=== PATIENT | female | born 1980 | race Caucasian/White ===

== ENCOUNTER 2017-02-14 08:03 | Emergency (ER) | payer BC ==
[2017-02-14 08:15] VITALS: BP 123/76; BMI 36.6
--- NOTE | 2017-02-14 08:39 | DR.GENAD ---
HPI - PCP Primary Care Physician: NFD - Complaint/Symptoms Chief Complaint:: PATIENT STATED SHE IS HAVING RIGHT SIDE PAIN THAT STARTED ON HER WAY TO WORK THIS MORNING. PT STATED SHE HAS A HX OF KIDNEY STONES - Nurses notes reviewed Nurses Notes Review: Yes - Source History Provided: Patient - Mode of Arrival Mode of Arrival: Ambulatory - Timing Onset of Chief Complaint: 02/14/17 Came on: Suddenly - Duration How lon Duration: Hours - Location Location: right flank - Severity Severity: Mild - Associated Signs and Symptoms Associated Signs and Symptoms: none PMH - PMH Past Medical History: Yes Past Medical History: Hypertension, Hypothyroidism Past Surgical History: Yes Surgical History: Cholecystectomy, Hysterectomy, Lithotripsy - Family History History of Family Medical Conditions: No - Social History Does patient currently use any type of tobacco product: No Have you used tobacco products in the last 12 months: No Type of Tobacco Use: None Does any household member use tobacco: No Alcohol Use: Occasionally Do you use any recreational Drugs:: No Lives With: Family Lives Where: Home - infectious screening In the last 2 months have you had wt loss of >10#?: NO Have you had fever, night sweats or hemotysis?: No Have you traveled outside the country in the last 6 months?: No Isolation: Standard ROS - Review of Systems Constitutional: No Symptoms Reported Eyes: No Symptoms Reported ENTM: No Symptoms Reported Respiratoy: No Symptoms Reported Cardiovascular: No Symptoms Reported Gastrointestinal/Abdominal: Other (right flank) Genitourinary: No Symptoms Reported Neurological: No Symptoms Reported Musculoskeletal: No Symptoms Reported Integumentary: No Symptoms Reported Hematologic/Lymphatic: No Symptoms Reported Endocrine: No Symptoms Reported Psychiatric: No Symptoms Reported PE - Vital Signs Vitals: Temperature 97.9 F Pulse Rate 89 Respiratory Rate 16 Blood Pressure 123/76 O2 Sat by Pulse Oximetry 100 - General Limitations: No Limitations General Appearance: Alert - Head Head Exam: Normal Inspection, Atraumatic - Eyes Eye exam: EOMI. negative: Scleral Icterus, Conjunctival Injection - ENT ENT Exam: Normal Exam, Normal Oropharynx External Ear Exam: Normal External Inspection Nose Exam: Normal Nose Exam - Neck Neck Exam: Normal Inspection, Full ROM, Trachea Midline - Respiratory Respiratory Exam: Normal Lung Sounds Bilat. negative: Accessory Muscle Use, Respiratory Distress Respiratory Exam: Bilateral Clear to Auscultation - Cardiovascular Cardiovascular Exam: Regular Rate - Abdominal Exam Abdominal Exam: Normal Inspection, Normal Bowel Sounds, Soft. negative: Distention, Tenderness, Guarding, Rebound - Extremities Extremities Exam: Normal Inspection, Full ROM - Back Back Exam: (R) CVA Tenderness - Neurologic Neurological Exam: Alert, Oriented X3, CN II-XII Intact - Psychiatric Psychiatric Exam: Depressed - Skin Skin Exam: Intact, Normal Color ROR - Labs Reviewed Laboratory: Specimen Type Clean catch urine 02/14/17 08:40 Urine Color Yellow (YELLOW) 02/14/17 08:40 Urine Appearance Cloudy (CLEAR) 02/14/17 08:40 Urine pH 6.0 (5.0 - 8.0) 02/14/17 08:40 Ur Specific [place] 1.020 (1.000-1.030) 02/14/17 08:40 Urine Protein 2+ (NEGATIVE) 02/14/17 08:40 Urine Glucose (UA) Negative (NEGATIVE) 02/14/17 08:40 Urine Ketones Negative (NEGATIVE) 02/14/17 08:40 Urine Occult Blood 5+ (NEGATIVE) 02/14/17 08:40 Urine Nitrite Negative (NEGATIVE) 02/14/17 08:40 Urine Bilirubin Negative (NEGATIVE) 02/14/17 08:40 Urine Urobilinogen Normal (NORMAL) 02/14/17 08:40 Ur Leukocyte Esterase 1+ (NEGATIVE) 02/14/17 08:40 Urine RBC 20-25 /HPF (NEGATIVE) 02/14/17 08:40 Urine WBC 0-2 /HPF (NEGATIVE) 02/14/17 08:40 Ur Squamous Epith Cells Moderate /HPF (NEGATIVE) 02/14/17 08:40 Urine Bacteria 3+ /HPF (NEGATIVE) 02/14/17 08:40 Ur Culture Indicated? No/not indicated 02/14/17 08:40 - XRAY XRAY Interpreted by: Radiologist XRAY Findings: CT abdo/pelvis: right 2.3mm ureteral stone - Diagnosis Discharge Problem: Ureteral stone - Discharge Plan Condition: Stable Prescriptions: Hydrocodone-Acetaminophen [Lortab 5-325 mg] 1 tab PO Q6H PRN #12 tab PRN Reason: Pain Ondansetron [Zofran Odt] 4 mg PO Q8H PRN #12 tab PRN Reason: Nausea/Vomiting - Follow ups/Referrals Follow ups/Referrals: NFD,None [Primary Care Provider] - 3 days - Instructions
[2017-02-14] MEDS ORDERED: NS 500 ML IV 500 ML IV ONE (08:44)
[2017-02-14] MEDS ORDERED: ZOFRAN INJ 4 MG VIAL IVP ONE (08:44)
[2017-02-14] MEDS ORDERED: TORADOL 60 MG VIAL IVP ONE (08:45)
[2017-02-14 08:54] LABS: BILIRUBIN,URINE NEGATIVE (NEGATIVE); BLOOD/HEMOGLOBIN,URINE 5+ (NEGATIVE); GLUCOSE, URINE NEGATIVE (NEGATIVE); KETONES,URINE NEGATIVE (NEGATIVE); LEUKOCYTE ESTERASE ,URINE 1+ (NEGATIVE); NITRITES,URINE NEGATIVE (NEGATIVE); PROTEIN,URINE 2+ (NEGATIVE); UROBILINOGEN,URINE NORMAL (NORMAL)
[2017-02-14] MEDS ORDERED: ZOFRAN INJ 4 MG VIAL ONE (09:00)
[2017-02-14] MEDS ORDERED: NS 1000 ML 1,000 ML ONE (09:00)
[2017-02-14] MEDS ORDERED: TORADOL 30 MG VIAL ONE (09:01)
[2017-02-14 09:12] LABS: APPEARANCE,URINE CLOUDY (CLEAR); COLOR,URINE YELLOW (YELLOW)
[2017-02-14 09:13] LABS: BACTERIA,URINE 3+ /HPF (NEGATIVE); RBC,URINE 20-25 /HPF (NEGATIVE); SQUAMOUS EPITHELIAL CELL,UR MODERATE /HPF (NEGATIVE)
--- NOTE | 2017-02-14 10:12 | CT ---
HISTORY: Right flank pain, history of kidney stones Study: CT abdomen and pelvis without IV or oral contrast Comparison: No priors Technique: Multiple axial images of the abdomen and pelvis were obtained from the lung bases to the pubic symph ysis without the administration of IV or oral contrast. Coronal and sagittal images are also reviewe d. Dose reduction techniques utilized automatic exposure control. Findings: The visualized portions of the lung bases are unremarkable. The liver, spleen, pancreas, left kidne y, and adrenal glands are unremarkable in their CT appearance. Gallbladder is surgically absent. The re is a 2.3 millimeter right proximal ureteral stone with mild right-sided hydronephrosis. No parenc hymal stone is seen. No significant mesenteric lymphadenopathy or stranding can be observed. No fr ee fluid or free air is seen within the abdomen. No bowel wall thickening or bowel dilatation is pr esent. Appendix is normal. The colon is unremarkable. Specifically, there is no diverticulosis not ed within the sigmoid colon. Uterus is surgically absent. The urinary bladder is grossly unremarkabl e. The bony structures are grossly intact. IMPRESSION: 2.3 millimeter right proximal ureteral stone with mild right-sided hydronephrosis. Reported By:
== END 2017-02-14 10:38 | disposition home or self-care (01) ==
LOC: ER 08:03
DX: N20.1 Calculus of ureter (principal)
CPT/HCPCS: 74176; 81001; 96365; 96374; 96375; 99283; A4222; J1885; J2405